=== PATIENT | female | born 1955 | race Caucasian/White ===

== ENCOUNTER → 2021-01-11 10:52 | Outpatient (BNVA) | payer BC, SELFPAY | PROVIDERS: PCP Internal Medicine; Referring Provider Internal Medicine; Visit Provider Internal Medicine | DX: I48.0 Paroxysmal atrial fibrillation (principal); I48.92 Unspecified atrial flutter; Z98.890 Other specified postprocedural states | CPT/HCPCS: 93005 ==

== ENCOUNTER 2021-01-12 10:15 | Outpatient (REF) | payer BC, SELFPAY ==
[2021-01-12 13:34] LABS: MANUAL DIFF FLAG NO
[2021-01-12 13:42] LABS: Basophils Percent Auto 0.7 % (0-2); Eosinophils Absolute Auto 0.5 X10*3/uL (0.0-0.4); Eosinophils Percent Auto 8.8 % (0-4); Hematocrit 43.6 % (37-47); Hemoglobin 14.4 g/dl (12.0-16.0); Imm Gran Abs Auto 0.01 X10*3/uL (0.00-0.03); Imm Gran Pct Auto 0.2 % (0.0-0.4); Lymphocytes Absolute Auto 1.7 X10*3/uL (1.2-4.9); Lymphocytes Percent Auto 30.1 % (20-40); Mean Corpuscular Hemoglobin 30.3 pg (27.0-33.0); Mean Corpuscular Volume 91.8 fL (80-98); Mean Platelet Volume 11.2 fL (9.4-12.3); Monocytes Absolute Auto 0.6 X10*3/uL (0.1-1.2); Monocytes Percent Auto 9.9 % (2-11); Neutrophils Absolute Auto 2.8 X10*3/uL (2.0-8.3); Neutrophils Percent Auto 50.3 % (45-73); Platelet Count 207 X10*3/uL (160-400); Red Blood Count 4.75 X10*6/uL (4.20-5.50); Red Cell Distribution Width 12.8 % (11.0-16.0); White Blood Count 5.6 X10*3/uL (4.8-10.8)
[2021-01-12 14:07] LABS: Alanine Aminotransferase 21 U/L (0-31); Albumin Level 4.4 g/dL (3.5-5.0); Alkaline Phosphatase 81 U/L (39-117); Anion Gap 14 (12-20); Aspartate Amino Transferase 20 U/L (5-31); Bilirubin Total 0.9 mg/dL (0.0-1.0); Blood Urea Nitrogen 17 mg/dL (9-16); Calcium 9.8 mg/dL (8.4-10.2); Carbon Dioxide 28 mmol/L (22-29); Chloride 103 mmol/L (96-108); Cholesterol 211 mg/dL; Estimated Glomerular Filt Rate > 60; Glucose Fasting 82 mg/dL (60-99); HDL Cholesterol 37 mg/dL; LDL Cholesterol Calculated 115 mg/dl; Potassium 4.7 mmol/L (3.3-5.1); Sodium 140 mmol/L (135-145); Total Protein 7.4 g/dL (6.5-8.0); Triglycerides 295 mg/dL
[2021-01-12 14:31] LABS: Free T4 (Free Thyroxine) 1.08 ng/dL (0.71-1.85); Thyroid Stimulating Hormone 1.72 uIU/mL (0.32-4.0)
[2021-01-12 14:34] LABS: Vitamin B12 576 pg/mL (200-900)
== END 2021-01-12 10:16 | disposition home or self-care (01) ==
LOC: HO.10HDL 10:15
PROVIDERS: Visit Provider Internal Medicine
DX: I48.0 Paroxysmal atrial fibrillation (principal); R53.83 Other fatigue
CPT/HCPCS: 36415; 80053; 80061; 82607; 84439; 84443; 85025

== ENCOUNTER → 2021-02-18 12:43 | Outpatient (REF) | payer BC, SELFPAY ==
--- NOTE | 2021-02-18 12:52 | HM_ITS ---
The patient is a 65-year-old female. REQUESTING PROVIDER: Dr. Parker. REASON FOR TEST: Paroxysmal atrial fibrillation. INTERPRETATION: The patient was hooked up to cardiac event monitor from 02/18/2021 to 03/20/2021, for a total period of 30 days. FINDINGS: Baseline rhythm was normal sinus rhythm. The patient has intermittent episodes of atrial fibrillation that were paroxysmal in nature. Episodes lasting for few minutes. The patient's heart rate up as high as 157 beats per minute with atrial fibrillation, otherwise heart rate in normal sinus rhythm at 63 beats per minute. The patient reported on 02/18/2021 with symptoms of palpitation at 5:15 p.m. that correlated to atrial fibrillation at 140 beats per minute. The patient's auto trigger event on 03/10/2021 at 2:29 a.m. The patient's atrial fibrillation, rapid ventricular response up to 157 beats per minute, at 2:30 a.m., the patient reported palpitation and subsequently had atrial flutter converted to sinus bradycardia. CONCLUSION: Event monitor is remarkable for: 1. Baseline normal sinus rhythm. 2. Symptomatic atrial fibrillation, flutter, short duration up to heart rate of 157 beats per minute. Young Dawson MD NRS/MODL / [id number]
--- NOTE | 2021-02-18 12:52 | CA_ITS ---
Transthoracic Echocardiogram Patient (Last, First, Middle): Tanya hCan, Gender: Female Date of : 1955 Age: 65 Procedure Date: 02/18/2021 Procedure Type: Transthoracic Echocardiogram Location: OP Height: 162.56 cm Weight: 72.58 kg BSA: 1.78 m2 Heart Rate: bpm BP: 120 / 80 mmHg Business Services Clerk: EDDI/CRISTHIAN Referring MD: Steve Parker MD Symptoms: I48.0 - Paroxysmal atrial fibrillation Study Quality: Fair ECG Rhythm: Sinus Conclusions: - The left ventricular systolic function is normal. The calculated ejection fraction is 64% by biplane method. - No obvious valvular pathology seen on this study. Findings Left Ventricle Normal left ventricular cavity size. The left ventricular systolic function is normal. The calculated ejection fraction is 64% by biplane method. There is no evidence of regional wall motion abnormalities. Diastolic function is normal for age. Possible mild hypertrophy of the basal septum. Right Ventricle Normal right ventricular cavity size and systolic function. Atria The left atrium is mildly dilated. The right atrium is normal in size. Aortic Valve There is a normal trileaflet aortic valve. There is no aortic valve stenosis. There is no aortic valve regurgitation. Mitral Valve The mitral valve appears normal. There is mild mitral valve regurgitation. There is no mitral valve stenosis. Pulmonic Valve The pulmonic valve was not well visualized. There is trace pulmonic valve regurgitation. Tricuspid Valve Normal tricuspid valve structure. There is trace tricuspid valve regurgitation. The pulmonary artery systolic pressure is normal. Great Vessels The aortic annulus, sinuses of valsalva, and asc aorta are normal in size. Venous The inferior vena cava is normal in size and collapses greater than 50% with inspiration. Pericardium/Pleural There is no evidence of pericardial effusion. Prior Study Comparison Changes noted compared to prior study dated: 01/10/2017. Left atrium now appears dilated. Recommendations, Care & Conclusions No obvious valvular pathology seen on this study. Measurements 2D Linear Measurements IVSd: 1.19 0.6-0.9/0.6-1.0 cm LVIDd: 4.29 3.9-5.3/4.2-5.9 cm LVIDd Index: 2.41 2.4-3.2/2.2-3.1 cm/m2 LVIDs: 2.64 2.0-3.6 cm LVPWd: 1.00 0.7-1.1 cm Ao Root: 3.00 2.1-3.5 cm LA Diam: 3.50 2.7-3.8/3.0-4.0 cm LAIDs Index: 1.97 1.5-2.3 cm/m2 LV Mass: 200.87 67-162/88-224 g LV Mass Index: 112.85 43-95/49-115 g/m2 LVOT Diam: 2.10 3.0+(-)1.3 cm 2D Systolic Function EF 4C: 64.60 >55% EF 2C: 60.60 >55% EF BiP: 63.60 >55% Mitral Valve MV Pk E: 0.74 MV PK A: 0.50 MV Decel Time: 282.00 E/A: 1.50 E'Lateral: 7.51 E'Medial: 6.53 E/E' Med: 11.30 E/E' Lat: 9.90 PHT: 83.00 MVA PHT: 2.65 Decel Bradley: 2.63 Aortic Valve AoV Pk Murray: 1.56 AoV Mn Murray: 1.08 AoV VTI: 0.36 AoV Pk Grad: 10.00 Aov Mn Grad: 5.00 DARREN Cont.VTI: 2.71 LVOT LVOT Pk Murray: 1.18 LVOT Mn Murray: 0.87 LVOT VTI: 0.28 LVOT Pk Grad: 6.00 LVOT Mn Grad: 3.00 LVOT Diam: 2.10 LVOT Area: 3.46 Diastolic Function MV Pk E: 0.74 MV Pk A: 0.50 E/A: 1.50 E'Medial: 6.53 E/E' Med: 11.30 E' Laterial: 7.51 E/E' Lat: 9.90 Right Ventricle TAPSE (mm): 2.12 Tricuspid Valve TR Pk Murray: 2.40 TR Pk Grad: 23.00 RA Press: 3.00 RVSP: 26.00 Great Vessels Aorta Ao Root-2D: 3.00 2.0-3.7 cm Ao Asc: 2.80 2.1-3.4 cm Ao Arch: 3.10 Updated in Other Vendor System with Status of Final Steve Parker MD electronically signed on 02/18/2021 4:03:27 PM with status of Final
== END ==
LOC: HO.CARD 12:43
PROVIDERS: PCP Internal Medicine; Visit Provider Internal Medicine
DX: I48.0 Paroxysmal atrial fibrillation (principal)
CPT/HCPCS: 93270; 93306

== ENCOUNTER → 2021-04-01 10:47 | Outpatient (BNVA) | payer BC, SELFPAY | PROVIDERS: PCP Internal Medicine; Referring Provider Internal Medicine; Visit Provider Internal Medicine | DX: I48.0 Paroxysmal atrial fibrillation (principal); I48.92 Unspecified atrial flutter; Z98.890 Other specified postprocedural states; G47.33 Obstructive sleep apnea (adult) (pediatric) | CPT/HCPCS: 93005 ==

== ENCOUNTER 2021-04-15 07:50 | Day surgery (SDC) | payer BC, SELFPAY ==
[2021-04-12 09:56] VITALS: BMI 27.1
--- NOTE | 2021-04-14 09:22 | HO.ANESPROP2 ---
Documented by User: Nancy Alaniz NP 04/14/21 09:28 HPI - Anesthesia Eval Consult details Narrative: 66yo F for Cardioversion Eliquis for PAF PMFSH Active Problems Active Problems: All Active Problems (Updated 04/12/21 @ 09:54 by Lupe Koehler, JACOB) Status post catheter ablation of atrial flutter (Acute) Status post catheter ablation of atrial fibrillation (Acute) Paroxysmal atrial flutter (Acute) PAF (paroxysmal atrial fibrillation) (Acute) Past Medical History Medical History Anxiety Osteoarthritis PAF (paroxysmal atrial fibrillation) Paroxysmal atrial flutter PONV (postoperative nausea and vomiting) Family History Family History Father No problems noted. Mother No problems noted. 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: Yes (spouse disabled) Do you presently have visiting nurse or other home services: Yes (spouse has PT 3x week) Patient Tobacco Use Status: Never used Tobacco Use of substances other than those prescribed or required for medical reasons: Yes Are you DNR?: No Advance Directives: No Advance Directives Information Provided: No Advance Directives on File: No Meds Allergies Allergy/AdvReac Type Severity Reaction Status Date / Time No Known Allergies Allergy Verified 04/15/21 08:07 [No Known Allergies*] Exam Exam Date and Time: April 14, 2021 0922 Height,Weight and Vital Signs: Height 5 ft 4 in Weight 71.668 kg Pertinent Lab Results Pertinent Lab Results: Laboratory Tests 01/12/21 01/12/21 10:20 10:20 WBC 5.6 Hgb 14.4 Hct 43.6 Plt Count 207 Sodium 140 Potassium 4.7 Chloride 103 Carbon Dioxide 28 BUN 17 H Creatinine 0.73 Narrative Narrative: EKG 03/2021 atrial fibrillation at 97/Min ECHO 02/18/21 Conclusions: - The left ventricular systolic function is normal.? The ? calculated ejection fraction is 64% by biplane method. ? - No obvious valvular pathology seen on this study.? ? Assessment and Plan Assessment Anesthesia Assessment: Chart Reviewed Documented by User: Lilia Puentes MD 04/15/21 08:43 PMFSH Past Medical History Medical History Anxiety Osteoarthritis PAF (paroxysmal atrial fibrillation) Paroxysmal atrial flutter PONV (postoperative nausea and vomiting) Family History Family History Father No problems noted. Mother No problems noted. Family history of problems with anesthesia: No Surgical History Surgical History History of cardiac radiofrequency ablation History of esophagogastroduodenoscopy (EGD) Hx of adenoidectomy Hx of breast biopsy Hx of colonoscopy History of Problems with Anesthesia: No Social History Social History Are you a primary child care coordinator to a significant other at home: Yes (spouse disabled) Do you presently have visiting nurse or other home services: Yes (spouse has PT 3x week) Patient Tobacco Use Status: Never used Tobacco Use of substances other than those prescribed or required for medical reasons: Yes Are you DNR?: No Advance Directives: No Advance Directives Information Provided: No Advance Directives on File: No Meds Allergies Allergy/AdvReac Type Severity Reaction Status Date / Time No Known Allergies Allergy Verified 04/15/21 08:07 [No Known Allergies*] Exam Airway Mallampati Class: II TM Dist: >3cm Neck ROM: Full Assessment and Plan Assessment Anesthesia Assessment: Anesthesia Plan Discussed Final Anesthetic Review Family History of Problems with Anesthesia: No History of Problems with Anesthesia: No NPO: Yes ASA Class: III Final Preanesthetic Review: No Changes in Pt Med Stat, Meds/Allgs Chart Reviewed, Consent Obtained/Reviewed and Anes Risks/Benef Reviewed Patient Risk: Low Procedure Risk: Low Assessment/Block/Sedation in SS: Assess/Block/Sedation-SS Anesthetic Plan Anesthetic Plan: MAC: Disposition: Standard PACU
[2021-04-15] VITALS (7 sets, daily range): BP systolic 103–137; BP diastolic 69–83; PULSE 76–103; RESP 14–18; TEMP 36.6–37.3; O2SAT 97–100
--- NOTE | 2021-04-15 08:45 | MHC.SHP ---
Pre-Procedural Eval Section A Date of Service: 04/15/21 The patient is an INPATIENT: No Changes since office visit: No Cold of Flu in the past 2 weeks, No New Medical Problems, No Changes in Medication and No Patient answered all questions The History & Physical has been completed within 30 days and I have reviewed it.: Yes Section B Chief Complaint: a-fib Allergies: Allergies Allergy/AdvReac Type Severity Reaction Status Date / Time No Known Allergies Allergy Verified 04/15/21 08:07 [No Known Allergies*] Plan I have reviewed the history and physical and performed a pertinent physical examination on my patient. No changes have occurred unless specified.
[2021-04-15] MEDS: Lactated Ringers 1,000 ML 100 ML IVCONT (08:54)
--- NOTE | 2021-04-15 09:30 | ECG_ITS ---
Test Reason : post cardioversion Blood Pressure : / mmHG Vent. Rate : 074 BPM Atrial Rate : 074 BPM P-R Int : 188 ms QRS Dur : 080 ms QT Int : 404 ms P-R-T Axes : 068 007 061 degrees QTc Int : 448 ms Normal sinus rhythm Normal ECG When compared with ECG of 24-NOV-2015 08:50, No significant change was found Referred By: Steve Parker Electronically Signed By:MYRON HATFIELD
--- NOTE | 2021-04-15 09:30 | HO.CARDIVERS ---
Cardioversion Procedure Note Cardioversion Date of Procedure: 04/15/2021 Ordering Provider: Dr. Parker Performing Provider: Dr. Parker Indication for Procedure: Atrial fibrillation/flutter with rapid rate, palpitations, multiple prior ablations Pre-Op Diagnosis: Atrial flutter with rapid rate (based on monitor) Post-Op Diagnosis: Sinus rhythm History: 66-year-old female, multiple prior ablations in having persistent atrial fibrillation/flutter with rapid rate. Consent: Informed consent obtained. Procedure: After informed consent was obtained, patient was taken to the PACU. The patient was then positioned appropriately. The cardioversion pads were placed in anteroposterior position. Once under anesthesia, 120 joules of synchronized shock was administered. The rhythm converted from atrial flutter/fibrillation to sinus rhythm. Patient remained in sinus rhythm after the end of procedure. Complications: None Impression: Successful cardioversion Recommendations: Referred to EP.
[2021-04-15] MEDS: Flecainide Acetate 50 MG TABLET 100 MG PO (09:44)
[2021-04-15] MEDS: Metoprolol Tartrate 25 MG TABLET PO (09:45)
[2021-04-15] MEDS: Acetaminophen 325 MG TABLET 650 MG PO (09:53)
== END 2021-04-15 10:38 | disposition home or self-care (01) ==
PROVIDERS: PCP Internal Medicine; Visit Provider Internal Medicine
PROC: 5A2204Z Restoration of Cardiac Rhythm, Single (ICD-10-PCS; principal; 2021-04-15 09:00)
DX: I48.0 Paroxysmal atrial fibrillation (principal); I48.92 Unspecified atrial flutter; Z79.01 Long term (current) use of anticoagulants
CPT/HCPCS: 92960; 93005

== ENCOUNTER → 2021-04-29 10:00 | Outpatient (REF) | payer BC, SELFPAY ==
--- NOTE | ~2021-04-29 | NM_ITS ---
Exercise Myocardial perfusion study Indication: Paroxysmal atrial fibrillation to evaluate for myocardial ischemia Technique: The patient was brought in for an exercise perfusion study on 04/29/2000. Patient performed exercise as per Hunter protocol and was injected 25 mCi of sestamibi was given intravenously one target HR was achieved. Images were obtained using the SPECT gamma camera interlaced with the gating device. Images were obtained in supine position. Resting perfusion study was performed on 04/30/2000. Patient was administered 25 mCi of sestamibi intravenously at rest. Images were then obtained in supine position. Images obtained with and without CT attenuation. Total DLP 111 mGy-cm. Images were processed with the software and compared side to side in short axis, horizontal long axis and vertical long axis views. Findings: The stress perfusion study showed nonattenuated images show minimal thinning and reduced uptake in the basal septum of the LV myocardium. Attenuated corrected images shows normal uptake of radiotracer in all segments of LV myocardium. The gated study shows normal LV systolic function with calculated LVEF of 70%. LV cavity is normal in size. The gated study shows normal systolic wall thickening and contraction of all segments. There is no transient ischemic dilation. Resting study shows attenuation corrected images show normal uptake of radiotracer in all segments myocardium. Gating at rest reveals normal systolic wall motion with ejection fraction at 73%. The findings are consistent with normal myocardial perfusion. NM/NM cardiolite stress test Impression: 1. Normal myocardial perfusion 2. Gated LVEF is 70% 3. Transient ischemic dilatation not present Stress EKG is negative for ischemia
--- NOTE | 2021-04-29 10:03 | CA_ITS ---
Acquisition Time: 2021-04-29 10:27:50 Total Exercise Time: 00:07:54 Test Indications: I48.0 - Paroxysmal atrial fibri Medications: Protocol: FROY Max HR: 134 BPM 87% of Pred: 154 BPM Max BP: 158/070 mmHG Max Work Load: 9.9 METS Exercise stress test with exercise 7 min 54 sec of Froy protocol, without anginal symptoms, with frequent PACs, with normotensive response to exercise, without EKG changes meeting criteria for ischemia. Nuclear images pending. Test reviewed with Dr Dawson. Referred By: Steve Parker Overread By: SHOSHANA KING
== END ==
LOC: HO.SL 10:00
PROVIDERS: PCP Internal Medicine; Visit Provider Internal Medicine
DX: G47.33 Obstructive sleep apnea (adult) (pediatric) (principal); I48.0 Paroxysmal atrial fibrillation
CPT/HCPCS: 78452; 93017; 95806; A9500

== ENCOUNTER → 2021-05-12 09:52 | Outpatient (BNVA) | payer BC, SELFPAY | PROVIDERS: PCP Internal Medicine; Referring Provider Internal Medicine; Visit Provider Internal Medicine ==

== ENCOUNTER → 2021-06-23 11:14 | Outpatient (BNVA) | payer BC, SELFPAY | PROVIDERS: PCP Internal Medicine; Referring Provider Internal Medicine; Visit Provider Internal Medicine | DX: I48.0 Paroxysmal atrial fibrillation (principal); I48.92 Unspecified atrial flutter; G47.33 Obstructive sleep apnea (adult) (pediatric); Z98.890 Other specified postprocedural states | CPT/HCPCS: 93005 ==

== ENCOUNTER 2021-07-08 15:57 | Outpatient (REF) | payer MEDICARE, SELFPAY ==
[2021-07-08 16:39] LABS: Influenza A PCR NEGATIVE (Negative); Influenza B PCR NEGATIVE (Negative); Resp Syncy Virus RNA Qual PCR NEGATIVE (Negative); SARS COV2 PCR INHOUSE NEGATIVE (Negative)
== END 2021-07-08 15:58 | disposition home or self-care (01) ==
LOC: HO.LNP 15:57
PROVIDERS: Visit Provider Internal Medicine
DX: Z20.822 Contact with and (suspected) exposure to COVID-19 (principal)
CPT/HCPCS: 0241U

== ENCOUNTER → 2021-09-28 11:29 | Outpatient (REF) | payer MEDICARE, SELFPAY ==
--- NOTE | 2021-09-28 11:32 | HM_ITS ---
conclusion: 1. Patient was monitored for total period of 5 days and 21 hours 2. Baseline rhythm was normal sinus rhythm with average heart of 67 beats per minute 3. No significant pauses or bradycardia noted 4. No ectopy noted 5. Patient reported event correlated with sinus rhythm MTDD
== END ==
LOC: HO.CARD 11:29
PROVIDERS: PCP Internal Medicine; Visit Provider Internal Medicine
DX: Z98.890 Other specified postprocedural states (principal)
CPT/HCPCS: 93242

== ENCOUNTER → 2021-10-21 10:32 | Outpatient (BNVA) | payer MEDICARE, SELFPAY | PROVIDERS: PCP Internal Medicine; Referring Provider Internal Medicine; Visit Provider Internal Medicine | DX: I48.0 Paroxysmal atrial fibrillation (principal); I48.92 Unspecified atrial flutter; G47.33 Obstructive sleep apnea (adult) (pediatric); Z98.890 Other specified postprocedural states; Z79.01 Long term (current) use of anticoagulants; Z79.899 Other long term (current) drug therapy | CPT/HCPCS: 93005; 99212 ==

== ENCOUNTER → 2022-05-05 10:00 | Outpatient (BNVA) | payer MEDICARE, SELFPAY | PROVIDERS: PCP Internal Medicine; Referring Provider Internal Medicine; Visit Provider Internal Medicine | DX: I48.0 Paroxysmal atrial fibrillation (principal); I48.92 Unspecified atrial flutter; G47.33 Obstructive sleep apnea (adult) (pediatric); Z98.890 Other specified postprocedural states; Z79.01 Long term (current) use of anticoagulants; Z79.899 Other long term (current) drug therapy; Z51.81 Encounter for therapeutic drug level monitoring | CPT/HCPCS: 93005; 99212 ==

== ENCOUNTER 2022-09-14 12:33 | Outpatient (REF) | payer MEDICARE, SELFPAY | END 2022-09-14 12:34 | disposition home or self-care (01) | LOC: HO.10HDLNP 12:33 | PROVIDERS: Visit Provider Internal Medicine | DX: L72.9 Follicular cyst of the skin and subcutaneous tissue, unspecified (principal) | CPT/HCPCS: 87070; 87205 ==

== ENCOUNTER → 2022-12-20 12:30 | Outpatient (BNVA) | payer MEDICARE, SELFPAY | PROVIDERS: PCP Internal Medicine; Visit Provider Internal Medicine | DX: Z01.810 Encounter for preprocedural cardiovascular examination (principal); I48.0 Paroxysmal atrial fibrillation; I48.92 Unspecified atrial flutter; G47.33 Obstructive sleep apnea (adult) (pediatric); Z98.890 Other specified postprocedural states; Z51.81 Encounter for therapeutic drug level monitoring; Z79.899 Other long term (current) drug therapy | CPT/HCPCS: 93005; 99212 ==

== ENCOUNTER 2023-09-06 10:28 | Outpatient (AMB) | payer MEDICARE, SELFPAY ==
[2023-09-06 10:32] VITALS: BP 124/76; PULSE 81; BMI 25.2
--- NOTE | 2023-09-06 10:32 | MHC.OFFVIS ---
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 Has underwent multiple ablations for the same. She is maintained on both beta-blockers and flecainide with Eliquis. Overall, doing well. No specific concerns at this time. No recent atrial fibrillation episodes. [facility] Medical History (Updated 12/20/22 @ 12:49 by Steve Parker MD) Osteoarthritis Anxiety PONV (postoperative nausea and vomiting) Paroxysmal atrial flutter PAF (paroxysmal atrial fibrillation) Surgical History History of esophagogastroduodenoscopy (EGD) Hx of colonoscopy Hx of adenoidectomy Hx of breast biopsy History of cardiac radiofrequency ablation (~06/18/21) Family History Father No problems noted. Mother No problems noted. Social History Are you a primary eye care professional to a significant other at home: Yes (spouse disabled) Do you presently have visiting nurse or other home services: Yes (spouse has PT 3x week) Patient Tobacco Use Status: Never used Tobacco Review of Systems Const Denies weakness ENT Denies dizziness Card Denies chest pain, Denies chest pain with activity, Denies syncope, Denies rapid heart rate, Denies pedal edema, Denies edema, Denies leg edema, Denies lightheadedness, Denies palpitations, Denies dyspnea, Denies dyspnea on exertion and Denies orthopnea Resp Denies cough, Denies dyspnea and Denies dyspnea on exertion GI Denies hematochezia and Denies change in stool character Musc Denies abnormal gait, Denies muscle cramps, Denies muscle weakness, Denies numbness, Denies radiating pain into limb and Denies tingling Neuro Denies abnormal gait, Denies dizziness, Denies syncope, Denies numbness, Denies tingling and Denies weakness Endo Denies palpitations Physical Exam Vital Signs: Last Vital Signs Pulse 81 09/06/23 10:32 BP 124/76 09/06/23 10:32 BMI result Body Mass Index 25.2 Const General: comfortable and no acute distress Orientation/consciousness: patient oriented x3 HEENT Other: Unremarkable Head: Yes normal to inspection Neck Neck: Yes normal visual inspection Chest Chest palpation & inspection: normal inspection of the chest Resp Auscultation: clear to auscultation bilaterally Cardio Palpation: normal PMI Heart sounds: S1 normal heart sound present, S2 normal heart sound present, no gallops, no murmurs and no rubs GI Palpation (GI): Soft to palpation Back/Spine/Pelvis Other: unremarkable Skin General skin exam: no rashes or lesions noted Neuro General: patient oriented x3 Extrem General: Yes normal to inspection Psych Mental Status: mental status grossly normal Office Procedures EKG Details: EKG with sinus rhythm at 81/Min; no significant ST-T changes and otherwise unremarkable[place]. [id number], Complete Assessment & Plan Assessment & Plan (1) PAF (paroxysmal atrial fibrillation): Code(s): I48.0 - Paroxysmal atrial fibrillation (2) Paroxysmal atrial flutter: Code(s): I48.92 - Unspecified atrial flutter (3) Status post catheter ablation of atrial flutter: Code(s): Z98.890 - Other specified postprocedural states (4) Status post catheter ablation of atrial fibrillation: Code(s): Z98.890 - Other specified postprocedural states (5) NOEL (obstructive sleep apnea): Code(s): G47.33 - Obstructive sleep apnea (adult) (pediatric) (6) Encounter for monitoring anti-arrhythmic therapy: Code(s): Z51.81 - Encounter for therapeutic drug level monitoring; Z79.899 - Other care home (current) drug therapy Plan Status post multiple ablations for atrial flutter/fibrillation. About 4 in total. With regard to medications, continue metoprolol indefinitely. With regard to flecainide, she can try to cut back on the dose to once a day for a few months and if still no issues, then possibly stop it. However, with her history, there is definitely increased risk of recurrent atrial fibrillation the future. She is well aware of that. Continue Eliquis without changes . With regard to NOEL, recommendations mainly weight loss and position therapy. Follow-up in 6 months. She will call with any interim concerns. Coding Level of Care Code Est Pt Level 4 (97958) Diagnoses PAF (paroxysmal atrial fibrillation) I48.0 Paroxysmal atrial flutter I48.92 Status post catheter ablation of atrial flutter Z98.890 Status post catheter ablation of atrial fibrillation Z98.890 NOEL (obstructive sleep apnea) G47.33 Encounter for monitoring anti-arrhythmic therapy Z51.81; Z79.899 CPT Codes EKG - CPT: 01008-[id number], Complete ([id number])
== END 2023-09-06 10:53 | disposition home or self-care (01) ==
PROVIDERS: PCP Internal Medicine; Visit Provider Internal Medicine
DX: I48.0 Paroxysmal atrial fibrillation (principal); I48.92 Unspecified atrial flutter; Z98.890 Other specified postprocedural states; G47.33 Obstructive sleep apnea (adult) (pediatric); Z51.81 Encounter for therapeutic drug level monitoring; Z79.899 Other long term (current) drug therapy
CPT/HCPCS: 93010; 99214

== ENCOUNTER → 2023-09-06 10:28 | Outpatient (BNVA) | payer MEDICARE, SELFPAY | PROVIDERS: PCP Internal Medicine; Visit Provider Internal Medicine | DX: I48.0 Paroxysmal atrial fibrillation (principal); I48.92 Unspecified atrial flutter; G47.33 Obstructive sleep apnea (adult) (pediatric); Z98.890 Other specified postprocedural states; Z51.81 Encounter for therapeutic drug level monitoring; Z79.899 Other long term (current) drug therapy | CPT/HCPCS: 93005; 99212 ==

== ENCOUNTER 2024-03-07 10:28 | Outpatient (AMB) | payer MEDICARE, SELFPAY ==
[2024-03-07 10:30] VITALS: BP 130/78; PULSE 69; BMI 26.4
--- NOTE | 2024-03-07 10:30 | A.OFFVIS_ITS ---
Vital Signs 03/07/24 10:30 Height 5 ft 4 in Weight 153 lb 14.122 oz BMI 26.4 BP 130/78 Blood Pressure Location Lt brachial Position Sitting Pulse 69 Intake Visit Reasons: 6 mth f/up [employer]en Tester Required: No Accompanied by: Self / Same As Patient Allergies No Known Allergies [No Known Allergies*] Allergy (Verified 09/06/23 10:34) Medication List - Last Reconciled 03/07/24 by Steve Parker MD apixaban (Eliquis) 5 mg PO BID calcium carbonate 600 mg PO DAILY flecainide 50 mg PO Q12H 90 days metoprolol succinate ER 25 mg PO DAILY multivitamin 1 tab PO DAILY HPI Comments Details: Tanya returns for follow up regarding atrial fibrillation and flutter. Has underwent multiple ablations for the same. She is maintained on both beta- blockers and flecainide with Eliquis. Recently, she went to the [facility] where she had an episode of low blood pressure. Unclear etiology. She states that she might have been dehydrated as she was not drinking much and also had a mixed drink in additionally was smoking marijuana. Any case, EMS checked her out and after that, she recovered completely. No further issues. Then blood pressures stabilized back to normal. No complaints like chest pain or anything else like palpitations extra. Feels good today. [facility] Medical History (Updated 12/20/22 @ 12:49 by Steve Parker MD) Osteoarthritis Anxiety PONV (postoperative nausea and vomiting) Paroxysmal atrial flutter PAF (paroxysmal atrial fibrillation) Surgical History History of esophagogastroduodenoscopy (EGD) Hx of colonoscopy Hx of adenoidectomy Hx of breast biopsy History of cardiac radiofrequency ablation (~06/18/21) Family History Father No problems noted. Mother No problems noted. Social History Are you a primary intensive care anaesthetist to a significant other at home: Yes (spouse disabled) Do you presently have visiting nurse or other home services: Yes (spouse has PT 3x week) Patient Tobacco Use Status: Never used Tobacco Review of Systems Const Denies chills, Denies fatigue, Denies fever(s), Denies weight gain and Denies weight loss ENT Denies dizziness Card Denies chest pain, Denies leg edema, Denies lightheadedness, Denies palpitation s, Denies dyspnea on exertion, Denies orthopnea and Denies other Resp Denies cough and Denies dyspnea on exertion GI Denies hematochezia and Denies change in stool character Musc Denies abnormal gait, Denies muscle weakness, Denies numbness, Denies radiating pain into limb and Denies tingling Neuro Denies abnormal gait, Denies dizziness, Denies numbness and Denies tingling Endo Denies fatigue and Denies palpitations Physical Exam Vital Signs: Last Vital Signs Pulse 69 03/07/24 10:30 BP 130/78 03/07/24 10:30 BMI result Body Mass Index 26.4 Const General: comfortable and no acute distress Orientation/consciousness: patient oriented x3 HEENT Other: Unremarkable Head: Yes normal to inspection Neck Neck: Yes normal visual inspection Chest Chest palpation & inspection: normal inspection of the chest Resp Auscultation: clear to auscultation bilaterally Cardio Palpation: normal PMI Heart sounds: S1 normal heart sound present, S2 normal heart sound present, no gallops, no murmurs and no rubs GI Palpation (GI): Soft to palpation Back/Spine/Pelvis Other: unremarkable Skin General skin exam: no rashes or lesions noted Neuro General: patient oriented x3 Extrem General: Yes normal to inspection Psych Mental Status: mental status grossly normal Office Procedures EKG Details: EKG shows underlying sinus rhythm at 69/Min; no significant ST-T changes and otherwise [place]remark[place] [id number], Complete Assessment & Plan Assessment & Plan (1) PAF (paroxysmal atrial fibrillation): Code(s): I48.0 - Paroxysmal atrial fibrillation Category: Medical (2) Paroxysmal atrial flutter: Code(s): I48.92 - Unspecified atrial flutter Category: Medical (3) Status post catheter ablation of atrial flutter: Code(s): Z98.890 - Other specified postprocedural states Category: Surgical (4) Status post catheter ablation of atrial fibrillation: Code(s): Z98.890 - Other specified postprocedural states Category: Surgical (5) NOEL (obstructive sleep apnea): Code(s): G47.33 - Obstructive sleep apnea (adult) (pediatric) Category: Medical (6) Encounter for monitoring anti-arrhythmic therapy: Code(s): Z51.81 - Encounter for therapeutic drug level monitoring; Z79.899 - Other longterm (current) drug therapy Category: Medical Plan Status post multiple ablations for atrial flutter/fibrillation. About 4 in total. She has not had any palpitations and several years now. We discussed in detail regarding medications. With regard to the flecainide, try to cut back to once a day for a few months and if still no recurrent palpitations, then possibly stop completely. We discussed about this today. She will try it and let us know. With regard to beta-blockers, continue without changes. Continue anticoagulation long-term. With regard to NOEL, recommendations mainly weight loss and position therapy. With recent low blood pressure issue at the [facility], no recurrences and she otherwise feels completely normal. If any issues, she will let us know. Follow-up in 6 months. She will call with any interim concerns. Coding Level of Care Code Est Pt Level 4 (70822) Diagnoses PAF (paroxysmal atrial fibrillation) I48.0 Paroxysmal atrial flutter I48.92 Status post catheter ablation of atrial flutter Z98.890 Status post catheter ablation of atrial fibrillation Z98.890 NOEL (obstructive sleep apnea) G47.33 Encounter for monitoring anti-arrhythmic therapy Z51.81; Z79.899 CPT Codes EKG - CPT: 01554-[id number], Complete ([id number])
== END 2024-03-07 11:04 | disposition home or self-care (01) ==
PROVIDERS: PCP Internal Medicine; Visit Provider Internal Medicine
DX: I48.0 Paroxysmal atrial fibrillation (principal); I48.92 Unspecified atrial flutter; Z98.890 Other specified postprocedural states; G47.33 Obstructive sleep apnea (adult) (pediatric); Z51.81 Encounter for therapeutic drug level monitoring; Z79.899 Other long term (current) drug therapy
CPT/HCPCS: 93010; 99214

== ENCOUNTER → 2024-03-07 10:28 | Outpatient (BNVA) | payer MEDICARE, SELFPAY | PROVIDERS: PCP Internal Medicine; Visit Provider Internal Medicine | DX: I48.0 Paroxysmal atrial fibrillation (principal); I48.92 Unspecified atrial flutter; G47.33 Obstructive sleep apnea (adult) (pediatric); Z51.81 Encounter for therapeutic drug level monitoring; Z79.01 Long term (current) use of anticoagulants; Z79.899 Other long term (current) drug therapy | CPT/HCPCS: 93005; 99212 ==

== ENCOUNTER 2025-01-15 09:36 | Outpatient (AMB) | payer MEDICARE, SELFPAY ==
[2025-01-15 09:47] VITALS: BP 130/68; PULSE 78; BMI 25.4
--- NOTE | 2025-01-15 09:47 | A.OFFVIS_ITS ---
Vital Signs 01/15/25 09:47 Height 5 ft 4 in Weight 147 lb 11.355 oz BMI 25.4 BP 130/68 Blood Pressure Location Lt brachial Position Sitting Pulse 78 Pulse Source Monitor Intake Visit Reasons: Follow up Allergies No Known Allergies (No Known Allergies*) Allergy (Verified 09/06/23 10:34) Medication List - Last Reconciled 01/15/25 by Steve Parker MD apixaban (Eliquis) 5 mg PO BID calcium carbonate 600 mg PO DAILY flecainide 50 mg PO ONCE letrozole 2.5 mg PO DAILY metoprolol succinate ER 25 mg PO ONCE multivitamin 1 tab PO DAILY HPI Comments Details: Tanya returns for follow up regarding atrial fibrillation and flutter. Has underwent multiple ablations for the same. She is maintained on both beta- blockers and flecainide with Eliquis. She was taking flecainide twice a day but for the last few months, she has been taking it just once a day and doing okay. Otherwise, getting along fine. No new concerns. [facility] Medical History (Updated 12/20/22 @ 12:49 by Steve Parker MD) Osteoarthritis Anxiety PONV (postoperative nausea and vomiting) Paroxysmal atrial flutter PAF (paroxysmal atrial fibrillation) Surgical History History of esophagogastroduodenoscopy (EGD) Hx of colonoscopy Hx of adenoidectomy Hx of breast biopsy History of cardiac radiofrequency ablation (~06/18/21) Family History Father No problems noted. Mother No problems noted. Social History Are you a primary career representative to a significant other at home: Yes (spouse disabled) Do you presently have visiting nurse or other home services: Yes (spouse has PT 3x week) Patient Tobacco Use Status: Never used Tobacco Review of Systems Const Denies weakness ENT Denies dizziness Card Denies chest pain, Denies chest pain with activity, Denies syncope, Denies rapid heart rate, Denies pedal edema, Denies edema, Denies leg edema, Denies lightheadedness, Denies palpitations, Denies dyspnea, Denies dyspnea on exertion and Denies orthopnea Resp Denies cough, Denies dyspnea and Denies dyspnea on exertion GI Denies hematochezia and Denies change in stool character Musc Denies abnormal gait, Denies muscle cramps, Denies muscle weakness, Denies numbness, Denies radiating pain into limb and Denies tingling Neuro Denies abnormal gait, Denies dizziness, Denies syncope, Denies numbness, Denies tingling and Denies weakness Endo Denies palpitations Physical Exam Vital Signs: Last Vital Signs Pulse 78 01/15/25 09:47 BP 130/68 01/15/25 09:47 BMI result Body Mass Index 25.4 Const General: comfortable and no acute distress Orientation/consciousness: patient oriented x3 HEENT Other: Unremarkable Head: Yes normal to inspection Neck Neck: Yes normal visual inspection Chest Chest palpation & inspection: normal inspection of the chest Resp Auscultation: clear to auscultation bilaterally Cardio Palpation: normal PMI Heart sounds: S1 normal heart sound present, S2 normal heart sound present, no gallops, no murmurs and no rubs GI Palpation (GI): Soft to palpation Back/Spine/Pelvis Other: unremarkable Skin General skin exam: no rashes or lesions noted Neuro General: patient oriented x3 Extrem General: Yes normal to inspection Psych Mental Status: mental status grossly normal Office Procedures EKG Details: EKG with underlying sinus rhythm at 78/Min; low-voltage QRS complexes; [place]. [id number], Complete Assessment & Plan Assessment & Plan (1) PAF (paroxysmal atrial fibrillation): Code(s): I48.0 - Paroxysmal atrial fibrillation Category: Medical (2) Paroxysmal atrial flutter: Code(s): I48.92 - Unspecified atrial flutter Category: Medical (3) Status post catheter ablation of atrial flutter: Code(s): Z98.890 - Other specified postprocedural states Category: Surgical (4) Status post catheter ablation of atrial fibrillation: Code(s): Z98.890 - Other specified postprocedural states Category: Surgical (5) NOEL (obstructive sleep apnea): Code(s): G47.33 - Obstructive sleep apnea (adult) (pediatric) Category: Medical (6) Encounter for monitoring anti-arrhythmic therapy: Code(s): Z51.81 - Encounter for therapeutic drug level monitoring; Z79.899 - Other intermediate designer (current) drug therapy Category: Medical Plan Status post multiple ablations for atrial flutter/fibrillation. About 4 in total. She has been free of arrhythmias for the last few years. As she is taking flecainide only once a day, she can stop it completely. If any palpitations or other concerns, she will contact us immediately. Continue beta-blockers/anticoagulation. With regard to NOEL, recommendation is mainly weight loss and position therapy. She seems to have lost a few lb since last time. We will check [facility] for any labs. If not, she will need CBC/BNP because of anticoagulation. Follow-up in one year. In the interim, she will call with concerns. Medications: Changed From metoprolol succinate ER 25 mg PO BID 180 tabs 3RF To metoprolol succinate ER 25 mg PO ONCE VELIA Coburn From flecainide 50 mg PO Q12H 180 tabs 3RF To flecainide 50 mg PO ONCE Steve Parker MD Coding Level of Care Code Est Pt Level 4 (76979) Complex EM visit Add On G2211 Diagnoses PAF (paroxysmal atrial fibrillation) I48.0 Paroxysmal atrial flutter I48.92 Status post catheter ablation of atrial flutter Z98.890 Status post catheter ablation of atrial fibrillation Z98.890 NOEL (obstructive sleep apnea) G47.33 Encounter for monitoring anti-arrhythmic therapy Z51.81; Z79.899 CPT Codes EKG - CPT: 65203-[id number], Complete ([id number])
--- OUTSIDE RECORDS SUMMARY | 2025-01-15 09:55 | XMS_ITS | Clinical Summary ---
Author Organization [facility] it Address [address] [place] [address] Care Team Providers Care Professor Of Forest Planning Name Role Phone Dony Restrepo MD Primary Care Provider [phone] Surgical History Surgery Date Site/Laterality Comments OTHER SURGICAL HISTORY PROCEDURE: MO LIG/TRNSXJ FLP TUBE ABDL/VAG APPR UNI/BI COLONOSCOPY 07/16/09 PROCEDURE: HISTORICAL COLONOSCOPY; COMMENT: hemorrhoids; repeat in ten years under propofol ESOPHAGOGASTRODUODENOSCOPY 07/16/09 PROCEDURE: MO ESOPHAGOGASTRODUODENOSCOPY TRANSORAL DIAGNOSTIC; COMMENT: Flavio's gland polyp and esophagitis Family History Medical History Relation Name Comments Lung cancer Father Other cancer Mother Breast cancer Sister 1 x2-x2 in same breast -again at age 45 Breast cancer Sister 2 Relation Name Status Comments Father lung cancer Mother Alive OA Sister 1 Alive 4 Sister 2 Social History Tobacco Use Types Packs/Day Years Used Date Smoking Tobacco: Never Smokeless Tobacco: Never Alcohol Use Standard Drinks/Week Comments Yes 0 (1 standard drink = 0.6 oz pur e alcohol) Comments Unknown Sex and Gender Information Value Date Recorded Sex Assigned at Not on file Legal Sex Female 12:02 PM EST Gender Identity Not on file Sexual Orientation Not on file Obstetrics History Plan of Treatment Health Maintenance Due Date Last Done Comments Breast Cancer Screening 1955 DTaP,Tdap,and Td Vaccines (1 - Tdap) 1974 Pneumococcal Vaccine: 50+ Ye ars (1 of 1 - PCV) 2005 Zoster Vaccines (1 of 2) 2005 Colorectal Cancer Screening: Colonoscopy 06/14/2022 Depression Screening 06/14/2022 Falls Risk Assessment 06/14/2022 Hepatitis C Screening 06/14/2022 Osteoporosis Screening (Bone Density Screening) 06/14/2022 Social Influencers of Health Screening 06/14/2022 COVID-19 Vaccine (2023-2 5 season) 2024 Influenza Vaccine (Season Ended) 2025 RSV Immunization Adult Patie nts (1 - 1-dose 75+ series) 2030 HIB Vaccines Aged Out No longer eligi ble based on patient's age to complete this topic HPV Vaccines Aged Out No longer eligi ble based on patient's age to complete this topic Hepatitis A Vaccines Aged Out No long er eligible based on patient's age to complete this topic Hepatitis B Vaccines Aged Out No long er eligible based on patient's age to complete this topic IPV Vaccines Aged Out No longer eligi ble based on patient's age to complete this topic MMR Vaccines Aged Out No longer eligi ble based on patient's age to complete this topic Meningococcal ACWY Vaccine Aged Out N o longer eligible based on patient's age to complete this topic Meningococcal B Vaccine Aged Out No l onger eligible based on patient's age to complete this topic RSV Immunization Patients Un jian 20 months Aged Out No longer eligible b ased on patient's age to complete this topic Varicella Vaccines Aged Out No longer eligible based on patient's age to complete this topic Care Teams Professor Of Forest Planning Relationship Specialty Start Date End Date Dony Restrepo MD [address] [place] [address] Dr Yelitza MA PCP - General Internal Medicine 05/30/17
== END 2025-01-15 10:11 | disposition home or self-care (01) ==
LOC: HO.HCS 09:36
PROVIDERS: PCP Internal Medicine; Visit Provider Internal Medicine
DX: I48.0 Paroxysmal atrial fibrillation (principal); I48.92 Unspecified atrial flutter; Z98.890 Other specified postprocedural states; G47.33 Obstructive sleep apnea (adult) (pediatric); Z51.81 Encounter for therapeutic drug level monitoring; Z79.899 Other long term (current) drug therapy
CPT/HCPCS: 93010; 99214; G2211

== ENCOUNTER → 2025-01-15 09:36 | Outpatient (BNVA) | payer MEDICARE, SELFPAY | PROVIDERS: PCP Internal Medicine; Visit Provider Internal Medicine | DX: I48.0 Paroxysmal atrial fibrillation (principal); I48.92 Unspecified atrial flutter; G47.33 Obstructive sleep apnea (adult) (pediatric); Z51.81 Encounter for therapeutic drug level monitoring; Z98.890 Other specified postprocedural states; Z79.899 Other long term (current) drug therapy | CPT/HCPCS: 93005; 99212 ==